=== PATIENT | female | born 1995 | race Caucasian/White ===

== ENCOUNTER 2018-12-12 16:54 | Emergency (ER) | payer MEDICAID, SELFPAY ==
[2018-12-12 16:55] VITALS: BP 128/76; PULSE 94; RESP 18; TEMP 36.6; O2SAT 99; BMI 32.0
--- NOTE | 2018-12-12 17:19 | HMH.EDUTC ---
[facility]ression: Otitis media Qualifiers: Otitis media type: suppurative Chronicity: acute Laterality: bilateral Recurrence: non-recurrent Spontaneous tympanic membrane rupture: without spontaneous rupture Qualified Code(s): H66.003 - Acute suppurative otitis media without spontaneous rupture of ear drum, bilateral Disposition: Home, Self-Care Condition on Discharge: Good Instructions: Middle Ear Infection Additional Instructions: Drink plenty of fluids. Take tylenol for pain or fever. Take the antibiotics as prescribed. Follow up wth your regular doctor. GO TO THE ER FOR ANY WORSENING SYMPTOMS Prescriptions: Amoxicillin [Amoxicillin 500mg Cap] 500 mg PO TID #30 cap Referrals: Prudencio Bailey MD [Primary Care Provider] - Forms: Work/School Release Time of Disposition: 17:42 Medical Decision Making - Medical Records Medical records reviewed: Yes: I reviewed the patient's medical records. - Ronn Inquiry Pt receiving controlled substance: No Ronn was queried for this patient: No Vital Signs: 12/12/18 16:55 12/12/18 17:49 Temperature 97.9 F 97.9 F Temperature Source Oral Oral Pulse Rate 94 H Pulse Rate [Left Radial] 94 H Respiratory Rate 18 18 Blood Pressure 128/76 Blood Pressure [Right Arm] 128/76 Blood Pressure Mean [Right Arm] 93 Blood Pressure Source Automatic Cuff Blood Pressure Source [Right Arm] Automatic Cuff Blood Pressure Position Sitting Blood Pressure Position [Right Arm] Sitting 02 Sat by Pulse Oximetry 99 Oxygen Delivery Method Room Air Room Air - Lab Data Lab Results 12/12/18 17:21: [facility]st Clinic Negative 12/12/18 17:42: POC Glucose 519 H* 12/12/18 17:43: Serum HCG, Qual Negative [facility] [place] - General Stated complaint: Possibe PREG, Possible Cold Time Seen by Provider: 12/12/18 17:19 - History of Present Illness Provider Complaint: She states she has had 1 week or worsening ear pain and sinus congestion. Her period is also late, so she thinks she may be . - Related Data Previous Rx's Medication Instructions Recorded Amoxicillin [Amoxicillin 500mg 500 mg PO TID #30 cap 12/12/18 Cap] Allergies Allergy/AdvReac Type Severity Reaction Status Date / Time No Known Allergies Allergy Verified 12/12/18 17:36 [facility] History - Hepatitis A Screen Attestation statement:: This patient has been screened for Hepatitis A risk factors. I have reviewed the patient's past medical history: Yes ROS Obtained: Yes All systems reviewed & no additional complaints - Genitourinary Female Genitourinary: Denies abnormal vaginal bleeding Physical Exam - General General appearance: alert, in no apparent distress - Head Head exam: atraumatic, normocephalic, normal inspection - Eye Eye exam: Present: normal appearance, PERRL, EOMI - ENT ENT exam: Present: normal exam, normal oropharynx, mucous membranes moist, TM's normal bilaterally, normal external ear exam - Neck Neck exam: Present: normal inspection, full ROM, trachea midline. Absent: meningismus, lymphadenopathy - Chest Chest inspection: Present: normal inspection, symmetric chest wall rise. Absent: tenderness - Respiratory Respiratory exam: Present: normal lung sounds bilaterally. Absent: respiratory distress - Cardiovascular Cardiovascular exam: Present: regular rate, normal rhythm. Absent: JVD - Abdominal Exam Abdominal exam: Present: soft, normal bowel sounds. Absent: distention, tenderness, guarding - Extremities Exam Extremities exam: Present: normal inspection, full ROM, normal capillary refill. Absent: calf tenderness - Back Exam Back exam: Present: normal inspection. Absent: tenderness - Neurological Exam Neurological exam: Present: alert, oriented X3 - Psychiatric Psychiatric exam: Present: normal affect, normal mood - Skin Skin exam: Present: warm, dry, intact, normal color - Lymphatic Lymphatic
[2018-12-12 17:23] LABS: UTC Pregnancy Test, Urine Negative (Negative)
--- NOTE | 2018-12-12 17:24 | ED_ITS ---
[facility] [place]: Otitis media Qualifiers: Otitis media type: suppurative Chronicity: acute Laterality: bilateral Recurrence: non-recurrent Spontaneous tympanic membrane rupture: without spontaneous rupture Qualified Code(s): H66.003 - Acute suppurative otitis media without spontaneous rupture of ear drum, bilateral Disposition: Home, Self-Care Condition on Discharge: Good Instructions: Middle Ear Infection Additional Instructions: Drink plenty of fluids. Take tylenol for pain or fever. Take the antibiotics as prescribed. Follow up wth your regular doctor. GO TO THE ER FOR ANY WORSENING SYMPTOMS Prescriptions: Amoxicillin [Amoxicillin 500mg Cap] 500 mg PO TID #30 cap Referrals: Prudencio Bailey MD [Primary Care Provider] - Forms: Work/School Release Time of Disposition: 17:42 Medical Decision Making - Medical Records Medical records reviewed: Yes: I reviewed the patient's medical records. - Ronn Inquiry Pt receiving controlled substance: No Ronn was queried for this patient: No Vital Signs: 12/12/18 16:55 12/12/18 17:49 Temperature 97.9 F 97.9 F Temperature Source Oral Oral Pulse Rate 94 H Pulse Rate [Left Radial] 94 H Respiratory Rate 18 18 Blood Pressure 128/76 Blood Pressure [Right Arm] 128/76 Blood Pressure Mean [Right Arm] 93 Blood Pressure Source Automatic Cuff Blood Pressure Source [Right Arm] Automatic Cuff Blood Pressure Position Sitting Blood Pressure Position [Right Arm] Sitting 02 Sat by Pulse Oximetry 99 Oxygen Delivery Method Room Air Room Air - Lab Data Lab Results 12/12/18 17:21: Tst Clinic Negative 12/12/18 17:42: POC Glucose 519 H* 12/12/18 17:43: Serum HCG, Qual Negative [facility] [place] - General Stated complaint: Possibe PREG, Possible Cold Time Seen by Provider: 12/12/18 17:19 - History of Present Illness Provider Complaint: She states she has had 1 week or worsening ear pain and sinus congestion. Her period is also late, so she thinks she may be . - Related Data Previous Rx's Medication Instructions Recorded Amoxicillin [Amoxicillin 500mg 500 mg PO TID #30 cap 12/12/18 Cap] Allergies Allergy/AdvReac Type Severity Reaction Status Date / Time No Known Allergies Allergy Verified 12/12/18 17:36 [facility] History - Hepatitis A Screen Attestation statement:: This patient has been screened for Hepatitis A risk factors. I have reviewed the patient's past medical history: Yes ROS Obtained: Yes All systems reviewed & no additional complaints - Genitourinary Female Genitourinary: Denies abnormal vaginal bleeding Physical Exam - General General appearance: alert, in no apparent distress - Head Head exam: atraumatic, normocephalic, normal inspection - Eye Eye exam: Present: normal appearance, PERRL, EOMI - ENT ENT exam: Present: normal exam, normal oropharynx, mucous membranes moist, TM's normal bilaterally, normal external ear exam - Neck Neck exam: Present: normal inspection, full ROM, trachea midline. Absent: meningismus, lymphadenopathy - Chest Chest inspection
[2018-12-12 17:49] VITALS: BP 128/76; PULSE 94; RESP 18; TEMP 36.6; O2SAT 99
[2018-12-12 17:54] LABS: POC Glucose,Bedside 519 (70-110)
[2018-12-12 18:06] LABS: HCG Qualitative, Serum Negative (Negative)
--- NOTE | 2018-12-12 18:13 | PC.NURSE ---
Patient notified of negative HCG.
== END 2018-12-12 17:49 | disposition home or self-care (01) ==
PROVIDERS: Emergency Provider Nurse Practitioner Family; PCP Internal Medicine
DX: H66.003 Acute suppurative otitis media without spontaneous rupture of ear drum, bilateral (principal); F17.210 Nicotine dependence, cigarettes, uncomplicated; N91.2 Amenorrhea, unspecified
CPT/HCPCS: 81025; 82962; 84703; 99202

== ENCOUNTER 2021-04-28 09:02 | Emergency (ER) | payer BC, SELFPAY ==
[2021-04-28 09:24] VITALS: BP 146/83; PULSE 91; RESP 18; TEMP 36.9; O2SAT 98; BMI 37.5
[2021-04-28 09:29] LABS: UTC Strep Screen (Rapid) Positive (Negative)
--- NOTE | 2021-04-28 09:42 | HMH.EDUTC ---
[facility] [place] Clinical Impression: Strep throat Disposition: Home, Self-Care Condition on Discharge: Good Instructions: DI for Strep Throat, Strep Throat Additional Instructions: *If you did not take Penicillin shot or was unable to, start taking antibiotic immediately and make sure that you take it for the FULL length of time although you should start to feel better in 24-48 hours *change toothbrush and toothpaste 24-48 hours after starting to take antibiotics so you do not reinfect yourself Monitor Temp. Tylenol and/or Ibuprofen as needed. ER if fever is no less than 101 despite alternating Tylenol and Ibuprofen * Encourage fluids, water, Gatorade, powerade, pedialyte if /toddler/or child *Cold fluids, popsicles and ice cream may feel good on his throat *Monitor Temp, Over the counter Motrin or Tylenol as directed/as needed Tylenol every 4 hours and Motrin every 6 hours (as long as your family doctor has told you that you can take it) for fever or pain. and straight to ER if unable to lower temp less than 101.0 after medication given *Warm salt water gargles may help to soothe the throat *Throat Lozenges *Warm fluids like tea with honey may help to soothe the throat *Sleep elevated *Humidifier/Vaporizer Follow up IMMEDIATELY for new or worsening symptoms or no Noticeable improvement over the next 48-72 hours. 911 for difficulty breathing or swallowing Prescriptions: cephALEXin [cephALEXin 500mg capsule*] 500 mg PO BID 10 Days #20 cap Transmission Status: Pending to [facility] #[id number] Referrals: Provider,Referral, [Primary Care Provider] - As needed Time of Disposition: 09:48 Medical Decision Making - Ronn Inquiry Pt receiving controlled substance: No Ronn was queried for this patient: No Vital Signs: 04/28/21 09:24 Temperature 98.4 F Temperature Source Oral Pulse Rate [Left] 91 H Respiratory Rate 18 Blood Pressure [Right Arm] 146/83 H Blood Pressure Mean [Right Arm] 104 02 Sat by Pulse Oximetry 98 - Lab Data Lab results reviewed: Yes: I reviewed the patient's lab results. Lab Results 04/28/21 09:22: Strep Scn Rapid Clinic Positive A Medical Decision Narrative: Patient states that she has taken Cephalexin in the past without complications or reactions [facility] [place] HPI - General Stated complaint: sore throat, cough, vomiting, weakness Time Seen by Provider: 04/28/21 09:42 Mode of Arrival: Ambulatory Source of Information: Patient Limitations: No Limitations Description of Symptoms (Recalled from Triage Doc. by RN): pt c/o a sore throat and light headedness. HEENT Symptoms (Recalled from RN notes): Yes (sore throat and light headed) Resp Symptoms (Recalled from RN notes): No Skin Symptoms (Recalled from RN notes): No MS Symptoms (Recalled from RN notes): No Functional Status (Recalled from RN notes): na - History of Present Illness Provider Complaint: Patient states that she has been having sore throat and headache States that she has been feeling feverish and chills States that several people at work has had strep throat and thinks she may have it too - Related Data Home Medications Medication Instructions Recorded Confirmed insulin aspar prt-insulin aspart 15 unit SQ DAILY 03/04/19 09/01/19 100 unit/mL (70-30) subcutaneous soln insulin glargine 100 unit/mL (3 32 unit SQ PM ml 03/04/19 09/01/19 mL) subcutaneous pen ranitidine HCl 150 mg tablet 150 mg PO DAILY 03/19/19 09/01/19 acetone (urine) test See Rx Instructions .ROUTE 07/04/19 09/01/19 .MEDSUPPLY #25 each glucagon (human recombinant) 1 mg IM 07/04/19 09/01/19 solution for injection insulin lispro 100 unit/mL unit SQ 07/04/19 09/01/19 subcutaneous pen lancets 30 gauge See Rx Instructions .ROUTE 07/04/19 09/01/19 .MEDSUPPLY #25 each pen needle, diabetic 31 gauge x See Rx Instructions .ROUTE 07/04/19 09/01/1916 .MEDSUPPLY #30 each blood sugar diagnostic See Rx Instructions .ROU
[2021-04-28 09:57] VITALS: BP 146/83; PULSE 91; RESP 16; TEMP 36.9
== END 2021-04-28 10:05 | disposition home or self-care (01) ==
PROVIDERS: Emergency Provider Nurse Practitioner
DX: J02.0 Streptococcal pharyngitis (principal)
CPT/HCPCS: 87880; 99202; G0463

== ENCOUNTER 2021-11-07 09:55 | Emergency (ER) | payer BC, SELFPAY ==
[2021-11-07 09:55] VITALS: BP 137/92; PULSE 102; RESP 16; TEMP 36.8; O2SAT 100; BMI 40.2
--- NOTE | 2021-11-07 09:57 | HMH.EDDIZZ ---
ED Disposition Clinical Impression: Hypoglycemia Disposition: Home, Self-Care Condition on Discharge: Good Instructions: Insulin, How to Check Your Blood Glucose, Hypoglycemia Additional Instructions: Please return to the emergency department immediately if you feel worse in any way. Follow-up with your primary care doctor in about 2 to 3 days if you do not feel better. - Critical Care Critical Care Time: No Attestation: On , the high probability of a clinically significant, sudden or life threatening deterioration of the following system(s) required my full and direct attention, intervention and personal management. The time I documented below is in addition to time spent performing reported procedures but includes the following listed in this critical care notation. Medical Decision Making - Medical Records Medical records reviewed: Yes: I reviewed the patient's medical records. - Ronn Inquiry Pt receiving controlled substance: No Vital Signs: 11/07/21 09:55 11/07/21 10:00 Temperature 98.3 F Temperature Source Oral Pulse Rate 95 H Pulse Rate [Right] 102 H Respiratory Rate 16 18 Blood Pressure 137/84 Blood Pressure [Right Arm] 137/92 H Blood Pressure Mean 104 Blood Pressure Mean [Right Arm] 107 Blood Pressure Source [Right Arm] Automatic Cuff Blood Pressure Position [Right Arm] Sitting 02 Sat by Pulse Oximetry 100 99 Oxygen Delivery Method Room Air - Lab Data Lab results reviewed: Yes: I reviewed the patient's lab results. Lab Results 11/07/21 10:00: WBC 8.8, RBC 4.68, Hgb 13.4, Hct 39.3, MCV 83.8, MCH 28.5, MCHC 34.0, RDW 14.7, Plt Count 355, MPV 8.9, Neut % (Auto) 60.4, Lymph % (Auto) 28.3, Glenn % (Auto) 4.8, Eos % (Auto) 4.7, Baso % (Auto) 1.9, Neut # (Auto) 5.3, Lymph # (Auto) 2.5, Glenn # (Auto) 0.4, Eos # (Auto) 0.4, Baso # (Auto) 0.2 11/07/21 10:00: Sodium 136, Potassium 3.9, Chloride 106, Carbon Dioxide 24, Anion Gap 9.9, BUN 11, Creatinine 0.50 L, Estimated Creat Clear 273, Estimated GFR 152, Est GFR ( Amer) 183, Glucose 88, Calcium 8.9, Total Bilirubin 0.3, AST 30, ALT 27, Alkaline Phosphatase 114, Total Protein 7.0, Albumin 3.8, Globulin 3.2, Albumin/Globulin Ratio 1.2, Lipase 59 11/07/21 10:00: Serum HCG, Qual Negative 11/07/21 10:13: Urine Color Yellow, Urine Appearance Clear, Urine pH 6.0, Ur Specific [place] 1.015, Urine Protein Negative, Urine Glucose (UA) Trace, Urine Ketones Negative, Urine Blood Negative, Urine Nitrate Negative, Urine Bilirubin Negative, Urine Urobilinogen 0.2, Ur Leukocyte Esterase Trace, Urine RBC None, Urine WBC None, Ur Squamous Epith Cells 3-5, Urine Bacteria Trace Result diagrams: 11/07/21 10:00 11/07/21 10:00 - Reevaluation(s) Time: 10:54 Reevaluation #1: Patient feels better. She complains of a mild migraine. Otherwise her dizziness and nausea have resolved. Medical Decision Narrative: The patient's work-up in the emergency department did not reveal any life-threatening or dangerous causes for the patient's symptoms. She is known diabetic and was found to be relatively hypoglycemic in comparison to her usual blood glucose. She has eaten in the emergency department. Her labs are unremarkable. She feels better. She can be safely discharged home. Dizzy HPI - General Stated Complaint: hypoglycemia Time Seen by Provider: 11/07/21 09:57 Mode of Arrival: EMS Source of Information: Patient - History of Present Illness HPI Narrative: The patient presents to the emergency department complaining of lightheadedness, nausea, and malaise. She also has a mild headache. She has a history of insulin-dependent diabetes as well as migraine headaches. She states that she ate breakfast today and her regular insulin dosing. Her glucose was 66. She states that her normal glucose is around 200. She never lost consciousness. She denies any vomiting diarrhea or chest pain or shortness of breath. MD complaint: dizziness, lightheadedness, near
[2021-11-07 10:00] VITALS: BP 137/84; PULSE 95; RESP 18; O2SAT 99
--- NOTE | 2021-11-07 10:12 | PC.NURSE ---
Called dietary for regular tray for patient
[2021-11-07 10:13] LABS: Basophils # 0.2 K/mm3 (0-0.2); Basophils % 1.9 % (0.1-2.0); Eosinophils # 0.4 K/mm3 (0.0-0.4); Eosinophils % 4.7 % (0.1-12.0); Hematocrit 39.3 % (37.0-47.0); Hemoglobin 13.4 g/dL (12.2-16.2); Lymphocytes # 2.5 K/mm3 (0.7-4.5); Lymphocytes % 28.3 % (10-50); Mean Corpuscular Hemoglobin 28.5 pg (27.0-31.2); Mean Corpuscular Volume 83.8 fl (81-99); Mean Platelet Volume 8.9 fl (7.4-10.4); Monocytes # 0.4 K/mm3 (0.1-1.0); Monocytes % 4.8 % (1.7-9.3); Neutrophils # 5.3 K/mm3 (1.8-7.8); Neutrophils % 60.4 % (37.0-80.0); Platelet Count 355 K/mm3 (142-424); Red Blood Count 4.68 M/mm3 (4.20-5.40); Red Cell Distribution Width 14.7 % (11.5-17.5); White Blood Count 8.8 K/mm3 (4.8-10.8)
[2021-11-07 10:18] LABS: Alanine Aminotransferase 27 U/L (12-78); Albumin Level 3.8 g/dl (3.5-5.0); Albumin/Globulin Ratio 1.2 (1.1-1.8); Alkaline Phosphatase 114 U/L (38-126); Anion Gap 9.9 mEq/L (5-15); Aspartate Amino Transferase 30 U/L (14-36); Bilirubin,Total 0.3 mg/dl (0.2-1.3); Blood Urea Nitrogen 11 mg/dl (7-17); Calcium 8.9 mg/dl (8.4-10.2); Carbon Dioxide 24 mmol/L (22.0-30.0); Chloride 106 mmol/L (98-107); Creatinine Clearance Estimated 273 mL/min (50-200); Estimated Glomerular Filt Rate 152 ml/min (>60); GFR (African American) 183 ML/MIN (>60); Globulin 3.2 g/dL (1.3-3.2); Glucose 88 mg/dl (74-100); Lipase 59 U/L (23-300); Potassium 3.9 mmoL/L (3.5-5.1); Sodium 136 mmol/L (136-145)
[2021-11-07 10:18] LABS: Microscopic, Urine URINE MICROSCOPIC (MICROSCOPIC)
[2021-11-07 10:21] LABS: Appearance,Urine CLEAR (Clear); Bilirubin,Urine Negative (Negative); Blood, Urine Negative (Negative); Color,Urine YELLOW (Yellow); Glucose,Urine (UA) TRACE (Negative); Ketones,Urine Negative (Negative); Leukocyte Esterase,Urine TRACE (Negative); Nitrate,Urine Negative (Negative); Protein,Urine Negative (Negative); Specific Gravity, Urine 1.015 (1.005-1.030); Urobilinogen,Urine 0.2 EU/dl (0.2)
[2021-11-07 10:35] LABS: Bacteria,Urine Trace /lpf
[2021-11-07 10:37] LABS: HCG Qualitative, Serum Negative (Negative)
--- NOTE | 2021-11-07 10:39 | PC.NURSE ---
PT sitting in bed eating. No new needs at this time
[2021-11-07 11:01] VITALS: BP 123/71; PULSE 78; RESP 18; TEMP 36.8; O2SAT 97
== END 2021-11-07 11:02 | disposition home or self-care (01) ==
PROVIDERS: Emergency Provider Emergency Medicine
DX: E10.649 Type 1 diabetes mellitus with hypoglycemia without coma (principal); F41.8 Other specified anxiety disorders; Z72.0 Tobacco use
CPT/HCPCS: 80053; 81001; 83690; 84703; 85025; 99283

== ENCOUNTER → 2021-11-30 11:14 | Outpatient (CLI) | payer BC, SELFPAY ==
[2021-11-30 13:18] LABS: Hemoglobin A1C 8.1 % (4.0-6.0)
[2021-11-30 13:20] LABS: Thyroid Stimulating Hormone 3.82 uIU/mL (0.465-4.68)
[2021-12-01 08:29] LABS: Progesterone 0.1 ng/mL (.)
== END ==
PROVIDERS: PCP Obstetrics & Gynecology; Visit Provider Obstetrics & Gynecology
DX: N97.9 Female infertility, unspecified (principal)
CPT/HCPCS: 36415; 83036; 84144; 84443

== ENCOUNTER 2022-01-05 15:59 | Emergency (ER) | payer BC, SELFPAY ==
[2022-01-05 16:14] VITALS: BMI 34.7
--- NOTE | 2022-01-05 16:15 | PC.NURSE ---
notified pt no beds available in ER at this time. Pt in wheelchair in triage room. Will room pt as soon as a room in available. Pt agreeable to this plan
--- NOTE | 2022-01-05 16:16 | XR_ITS ---
PROCEDURE INFORMATION: Exam: XR Left Ankle Exam date and time: 01/05/2022 4:28 PM Age: 26 years old Clinical indication: Pain; Other: Lateral malleolus; Additional info: PT fell [employer], pain w swelling @ lateral malleolus TECHNIQUE: Imaging protocol: Radiologic exam of the Left ankle. Views: 3 or more views. COMPARISON: CR XR ANKLE LT MIN 3V 04/04/2019 9:05 PM FINDINGS: Bones/joints: There is no evidence of acute fracture. There is no evidence of joint malalignment or dislocation. Soft tissues: Mild soft tissue swelling. IMPRESSION: 1. Mild soft tissue swelling. 2. No evidence of acute fracture. 3. No evidence of acute dislocation.
--- NOTE | 2022-01-05 16:18 | PC.NURSE ---
notified rad of xray order, spoke with chin
[2022-01-05 16:25] VITALS: BP 125/85; PULSE 107; RESP 16; O2SAT 99; BMI 34.7
[2022-01-05 17:00] VITALS: BP 121/82; PULSE 100; RESP 18; O2SAT 100
--- NOTE | 2022-01-05 17:09 | PC.NURSE ---
pt brought to room 5 via wheelchair
--- NOTE | 2022-01-05 17:16 | PC.NURSE ---
sandwich ordered for pt, pt reports her glucose is 55, pt wearing insulin pump
--- NOTE | 2022-01-05 17:18 | PC.NURSE ---
L foot propped up on pillow for comfort, will continue to monitor
--- NOTE | 2022-01-05 17:28 | PC.NURSE ---
ice pack to L ankle at this time.
[2022-01-05 17:30] VITALS: BP 131/91; PULSE 101; RESP 18; O2SAT 100
--- NOTE | 2022-01-05 17:59 | HMH.EDLOEX ---
ED Disposition Clinical Impression: Ankle sprain Qualifiers: Encounter type: initial encounter Involved ligament of ankle: unspecified ligament Laterality: left Qualified Code(s): S93.402A - Sprain of unspecified ligament of left ankle, initial encounter Disposition: Home, Self-Care Condition on Discharge: Good Instructions: DI for Ankle Sprain Additional Instructions: ice and see pcp or ortho or podiatry for follow up - workman comp for m completed Referrals: Lubna Farmer APRN [Primary Care Provider] - Mari Souza DPM [Staff Physician] - Sunil Garcia MD [Staff Physician] - - Critical Care Critical Care Time: No Attestation: On 01/05/22, the high probability of a clinically significant, sudden or life threatening deterioration of the following system(s) required my full and direct attention, intervention and personal management. The time I documented below is in addition to time spent performing reported procedures but includes the following listed in this critical care notation. Medical Decision Making - Medical Records Medical records reviewed: Yes: I reviewed the patient's medical records. - Ronn Inquiry Pt receiving controlled substance: No Vital Signs: 01/05/22 16:25 Pulse Rate [Right Radial] 107 H Respiratory Rate 16 Blood Pressure [Right Arm] 125/85 Blood Pressure Mean [Right Arm] 98 Blood Pressure Source [Right Arm] Automatic Cuff Blood Pressure Position [Right Arm] Sitting 02 Sat by Pulse Oximetry 99 Oxygen Delivery Method Room Air - Lab Data Lab results reviewed: Yes: I reviewed the patient's lab results. Orders (Tests/Meds): ED MEDICATIONS Discontinued Medications Generic Name Dose Route Start Last Admin Trade Name Freq PRN Reason Stop Dose Admin Acetaminophen 1,000 mg 01/05/22 17:23 01/05/22 17:24 Acetaminophen 500mg Tab PO 01/05/22 17:24 1,000 mg ONCE ONE Administration - Radiology Data #1 Image(s): Ankle Image Reviewed: Yes I have reviewed radiologist's interpretation Preliminary Findings: No Fracture Seen Medical Decision Narrative: pt with acute injury to lt ankle with dec rom and will need f/u with ortho or podiatry Lower Extremity Injury HPI - General Chief Complaint: Extremity Injury, Lower Stated Complaint: AO 01/05@1530 reinjured L ankle Time Seen by Provider: 01/05/22 17:59 Mode of Arrival: Wheelchair Source of Information: Patient, Medical Record Limitations: No Limitations Description of Symptoms (Recalled from ER Triage Doc. by RN): pt c/o L ankle pain. Pt reports she tripped at work causing her to fall. Swelling noted to L ankle. Pt reports her foot is numb feeling. Pulses positive and equal, cap refill wnl - History of Present Illness HPI Narrative: stepped on toy at work and injured lt ankle MD complaint: ankle injury Onset (ago): hour(s) Injury: Left: ankle Type of Injury: eversion Place: work Severity: moderate Context: walking Associated symptoms: snap/pop sensation, swelling, able to partially bear weight Other symptoms: none - Related Data Home Medications Medication Instructions Recorded Confirmed glucagon (human recombinant) 1 mg IM 07/04/19 12/20/21 solution for injection lancets 30 gauge See Rx Instructions .ROUTE 07/04/19 12/20/21 .MEDSUPPLY #25 each pen needle, diabetic 31 gauge x See Rx Instructions .ROUTE 07/04/19 12/20/21 3/16 .MEDSUPPLY #30 each blood-glucose meter See Rx Instructions .ROUTE 09/01/19 12/20/21 .MEDSUPPLY #1 each cariprazine 1.5 mg capsule 1.5 mg PO cap 11/25/21 12/20/21 hydroxyzine HCl 25 mg tablet 25 mg PO BID PRN tab 11/25/21 12/20/21 insulin lispro 100 unit/mL 1 sliding scale dose SQ ml 11/25/21 12/20/21 subcutaneous solution rizatriptan 5 mg tablet 5 mg PO tab 11/25/21 12/20/21 Previous Rx's Medication Instructions Recorded Ondansetron [Zofran 4mg ODT] 4 mg PO Q8HP PRN #20 tab.rapdis 08/09/19 vits no.[id number]-ferrous fum 1
[2022-01-05 18:00] VITALS: BP 130/93; PULSE 91; RESP 18; O2SAT 99
--- NOTE | 2022-01-05 18:00 | PC.NURSE ---
SOFT ROLL AND RODRÍGUEZ WRAP APPLIED TO LEFT ANKLE , PT HAS CRUTCHES AT HOME
[2022-01-05 18:46] VITALS: BP 126/66; PULSE 101; RESP 17; TEMP 36.8; O2SAT 100
== END 2022-01-05 18:46 | disposition home or self-care (01) ==
PROVIDERS: Emergency Provider Emergency Medicine; PCP Nurse Practitioner Family
DX: S93.402A Sprain of unspecified ligament of left ankle, initial encounter (principal); W01.0XXA Fall on same level from slipping, tripping and stumbling without subsequent striking against object, initial encounter; F17.210 Nicotine dependence, cigarettes, uncomplicated; Z79.4 Long term (current) use of insulin; E10.9 Type 1 diabetes mellitus without complications
CPT/HCPCS: 29515; 73610; 99283

== ENCOUNTER 2022-07-27 09:24 | Emergency (ER) | payer BC, SELFPAY ==
[2022-07-27 09:40] VITALS: BP 130/74; PULSE 103; RESP 19; TEMP 36.7; O2SAT 98; BMI 39.9
--- NOTE | 2022-07-27 09:52 | EXP.UTC ---
Discharge Plan Disposition Patient Disposition: Home, Self-Care Condition: Good Prescriptions Prescriptions: New amoxicillin-pot clavulanate 875-125 mg Tablet 1 tab PO Q12H Qty: 20 0RF fluticasone propionate [Flonase Allergy Relief] 50 mcg/actuation spray,suspension 1 spray intranasal DAILY Qty: 16 0RF Rx Instructions: administer into each nostril No Action (DME) pen needle, diabetic 31 gauge x 3/16 needle See Rx Instructions .ROUTE .MEDSUPPLY Qty: 30 Rx Instructions: As directed glucagon (human recombinant) 1 mg recon soln IM (DME) lancets 30 gauge misc See Rx Instructions .ROUTE .MEDSUPPLY Qty: 25 Rx Instructions: As directed (DME) blood-glucose meter Misc See Rx Instructions .ROUTE .MEDSUPPLY Qty: 1 Rx Instructions: As directed insulin lispro 100 unit/mL solution 1 sliding scale dose SQ hydroxyzine HCl 25 mg tablet 25 mg PO BID PRN rizatriptan 5 mg tablet 5 mg PO Label Comments: TAKE 1 TABLET AT ONSET OF HEADACHE. MAY REPEAT EVERY 2 HOURS NEEDED. MAXIMUM 3 TABLETS/24 HOURS. Vraylar 1.5 mg capsule 1.5 mg PO Classic 28 mg iron- 800 mcg tablet 1 tab PO DAILY Qty: 90 0RF clomiphene citrate 50 mg tablet 50 mg PO DAILY 5 Days Qty: 5 0RF ondansetron 4 MG tablet,disintegrating 4 mg PO Q8HP PRN (Reason: Nausea) Qty: 20 0RF Referrals Follow up/Referrals: Lubna Farmer APRN [Primary Care Provider] - See instructions Activity Restrictions/Add. Instructions Additional Instructions/Restrictions: *Monitor Temp, Over the counter Motrin or Tylenol as directed/as needed Tylenol every 4 hours and Motrin every 6 hours (as long as your family doctor has told you that you can take it) for fever or pain. and straight to ER if unable to lower temp less than 101.0 after medication given *Warm salt water gargles may help to soothe the throat *Throat Lozenges? *Warm fluids like tea with honey may help to soothe the throat? *Sleep elevated *Humidifier/Vaporizer Your throat swab was sent for culture. Those results are typically sent to your primary care. Be sure to follow up in 2-3 days with your family doctor/primary care physician if no improvement so they can review those result and treat if necessary. If you don?t have a primary care doctor, I recommend you get one but in the mean time, you will have to return to a walk in clinic Follow up IMMEDIATELY for new or worsening symptoms or no Noticeable improvement over the next 48-72 hours. 911 for difficulty breathing or swallowing Clinical Impressions Clinical Impression: Sinusitis Stand Alone Forms Stand Alone Forms: Work/School Release Instructions Patient Instructions: DI for Sinusitis, Sinusitis Discharge ED [place] [facility] [place] General Stated complaint: sore throat, ear pain, cough, FLOOD Time Seen by Provider: 07/27/22 09:53 History of Present Illness Provider Complaint: Patient states that she works at a daycare States that she thinks she may have a sinus infection but she has been having sore throat, sinus congestion and pressure, cough and headache States that today she was still not feeling well and her throat was hurting worse so she came in Related Data Home Medications Medication Instructions Recorded Confirmed glucagon (human recombinant) 1 mg IM 07/04/19 12/20/21 solution for injection lancets 30 gauge #25 ea 07/04/19 12/20/21 pen needle, diabetic 31 gauge x #30 ea 07/04/19 12/20/2109/14 blood-glucose meter #1 ea 09/01/19 12/20/21 cariprazine 1.5 mg capsule 1.5 mg PO 11/25/21 12/20/21 (Vraylar) hydroxyzine HCl 25 mg tablet 25 mg PO BID PRN 11/25/21 12/20/21 insulin lispro 100 unit/mL 1 sliding scale dose SQ 11/25/21 12/20/21 subcutaneous solution rizatriptan 5 mg tablet 5 mg PO 11/25/21 12/20/21 Previous Rx's Medication Instructions Recorded ondansetron 4 mg
[2022-07-27 10:02] LABS: UTC Strep Screen (Rapid) Negative (Negative)
[2022-07-27 10:25] VITALS: BP 130/74; PULSE 103; RESP 19; TEMP 36.7; O2SAT 98
== END 2022-07-27 10:27 | disposition home or self-care (01) ==
PROVIDERS: Emergency Provider Nurse Practitioner; PCP Nurse Practitioner Family
DX: J32.9 Chronic sinusitis, unspecified (principal)
CPT/HCPCS: 87880; 99212; 99213; G0463

== ENCOUNTER 2022-10-10 13:17 | Emergency (ER) | payer BC, SELFPAY ==
[2022-10-10] VITALS (8 sets, daily range): BP systolic 135–184; BP diastolic 75–100; PULSE 85–102; RESP 16; TEMP 36.3–36.9; O2SAT 98–100; BMI 45.7
[2022-10-10 13:34] LABS: POC Glucose,Bedside 504 (70-110)
[2022-10-10 13:58] LABS: Microscopic, Urine URINE MICROSCOPIC (MICROSCOPIC)
[2022-10-10 14:02] LABS: VBG Base Excess -3.6 mmol/L (-2.4-2.3); VBG HCO3 21.8 mmol/L (23-30); VBG Oxygen Saturation 94.3 % (50-70); VBG PCO2 39.5 mmol/L (35-51); VBG PH 7.36 mmol/L (7.31-7.41); VBG PO2 72.2 mmol/L (28-40)
[2022-10-10 14:05] LABS: Appearance,Urine CLEAR (Clear); Bilirubin,Urine Negative (Negative); Blood, Urine Negative (Negative); Color,Urine YELLOW (Yellow); Glucose,Urine (UA) 3+ (Negative); Ketones,Urine TRACE (Negative); Leukocyte Esterase,Urine Negative (Negative); Nitrate,Urine Negative (Negative); Protein,Urine Negative (Negative); Urobilinogen,Urine 0.2 EU/dl (0.2)
--- NOTE | 2022-10-10 14:05 | PC.NURSE ---
RESP CARE NOTE: Shellie Nelson RN notified that VBG was an ABG result.
[2022-10-10 14:12] LABS: Basophils # 0.1 K/mm3 (0-0.2); Basophils % 0.8 % (0.1-2.0); Eosinophils # 0.4 K/mm3 (0.0-0.4); Eosinophils % 4.7 % (0.1-12.0); Hematocrit 40.8 % (37.0-47.0); Lymphocytes # 2.3 K/mm3 (0.7-4.5); Lymphocytes % 29.4 % (10-50); Mean Corpuscular HGB Conc 31.9 g/dL (31.8-35.4); Mean Corpuscular Hemoglobin 26.8 pg (27.0-31.2); Mean Corpuscular Volume 84.1 fl (81-99); Mean Platelet Volume 10.1 fl (7.4-10.4); Monocytes # 0.4 K/mm3 (0.1-1.0); Monocytes % 5.7 % (1.7-9.3); Neutrophils # 4.6 K/mm3 (1.8-7.8); Neutrophils % 59.4 % (37.0-80.0); Platelet Count 311 K/mm3 (142-424); Red Blood Count 4.85 M/mm3 (4.20-5.40); Red Cell Distribution Width 13.8 % (11.5-17.5); White Blood Count 7.7 K/mm3 (4.8-10.8)
--- NOTE | 2022-10-10 14:13 | HMH.EDGENADL ---
Discharge Plan Disposition Patient Disposition: Home, Self-Care Chief Complaint: Weakness Prescriptions Prescriptions: No Action (DME) pen needle, diabetic 31 gauge x 3/16 needle See Rx Instructions .ROUTE .MEDSUPPLY Qty: 30 Rx Instructions: As directed glucagon (human recombinant) 1 mg recon soln IM (DME) lancets 30 gauge misc See Rx Instructions .ROUTE .MEDSUPPLY Qty: 25 Rx Instructions: As directed (DME) blood-glucose meter Misc See Rx Instructions .ROUTE .MEDSUPPLY Qty: 1 Rx Instructions: As directed insulin lispro 100 unit/mL solution 1 sliding scale dose SQ hydroxyzine HCl 25 mg tablet 25 mg PO BID PRN rizatriptan 5 mg tablet 5 mg PO Label Comments: TAKE 1 TABLET AT ONSET OF HEADACHE. MAY REPEAT EVERY 2 HOURS NEEDED. MAXIMUM 3 TABLETS/24 HOURS. Vraylar 1.5 mg capsule 1.5 mg PO Classic 28 mg iron- 800 mcg tablet 1 tab PO DAILY Qty: 90 0RF clomiphene citrate 50 mg tablet 50 mg PO DAILY 5 Days Qty: 5 0RF ondansetron 4 MG tablet,disintegrating 4 mg PO Q8HP PRN (Reason: Nausea) Qty: 20 0RF amoxicillin-pot clavulanate 875-125 mg Tablet 1 tab PO Q12H Qty: 20 0RF fluticasone propionate [Flonase Allergy Relief] 50 mcg/actuation spray,suspension 1 spray intranasal DAILY Qty: 16 0RF Rx Instructions: administer into each nostril Referrals Follow up/Referrals: Lubna Farmer APRN [Primary Care Provider] - See instructions Activity Restrictions/Add. Instructions Additional Instructions/Restrictions: Return for worsening elevation in blood glucose levels or any other concerns within the next 8 hours follow-up with your primary care physician within the next few days Clinical Impressions Clinical Impression: Acute hyperglycemia Discharge ED Provider: Ranjit Culver [facility] HPI General Chief complaint: Weakness Stated complaint: high sugar, weakness Time Seen by Provider: 10/10/22 13:20 Mode of Arrival: Ambulatory Source of Information: Patient Limitations: No Limitations Description of Symptoms (Recalled from ER Triage Doc. by RN): pt comes in with c/o glucose monitor at home reading high, weakness. pt reports that she woke up this am and her dexcom was reading glucose level as high . pt reports that she normally has an insulin pump, but currently it is off. pt will not have more supplies until sunday. at home glucose reader was 532 approx 1 hr ago. pt reports that she has taken approx 60 units in total since she woke up this am. History of Present Illness HPI narrative: 27-year-old female with history of type 1 diabetes presents with high blood sugar. She has had increased thirst hunger and urination. Her blood sugar was 500 at home. She normally has an insulin pump however it is currently off. She will have more supplies until Sunday her home blood sugar reading was 532. She is generally weak no fever or chills. No abdominal pain nausea vomiting or diarrhea. Related Data Home Medications Medication Instructions Recorded Confirmed glucagon (human recombinant) 1 mg IM 07/04/19 12/20/21 solution for injection lancets 30 gauge #25 ea 07/04/19 12/20/21 pen needle, diabetic 31 gauge x #30 ea 07/04/19 12/20/2109/14 blood-glucose meter #1 ea 09/01/19 12/20/21 cariprazine 1.5 mg capsule 1.5 mg PO 11/25/21 12/20/21 (Vraylar) hydroxyzine HCl 25 mg tablet 25 mg PO BID PRN 11/25/21 12/20/21 insulin lispro 100 unit/mL 1 sliding scale dose SQ 11/25/21 12/20/21 subcutaneous solution rizatriptan 5 mg tablet 5 mg PO 11/25/21 12/20/21 Previous Rx's Medication Instructions Recorded ondansetron 4 mg disintegrating 4 mg PO Q8HP PRN Nausea ##20 08/09/19 tablet vits no.126-ferrous fum 1 tab PO DAILY #90 tabs 11/25/21 28 mg iron-folic acid 800 mcg tablet (Classic ) clomiphene citrate 50 mg tablet 50 mg PO DAILY 5 days #5 tabs 12/20/21 amoxicillin 875
[2022-10-10 14:14] LABS: Chloride 99 mmol/L (98-107); Potassium 4.7 mmoL/L (3.5-5.1); Sodium 130 mmol/L (136-145)
[2022-10-10 14:17] LABS: Anion Gap 12.7 mEq/L (5-15); Blood Urea Nitrogen 17 mg/dl (7-17); Calcium 8.6 mg/dl (8.4-10.2); Carbon Dioxide 23 mmol/L (22.0-30.0); Creatinine Clearance Estimated 113 mL/min (50-200); Estimated Glomerular Filt Rate 122 ml/min (>60); GFR (African American) 147 ML/MIN (>60)
[2022-10-10 14:23] LABS: VBG Base Excess -5.1 mmol/L (-2.4-2.3); VBG HCO3 20.9 mmol/L (23-30); VBG Oxygen Saturation 87.5 % (50-70); VBG PCO2 40.5 mmol/L (35-51); VBG PH 7.33 mmol/L (7.31-7.41); VBG PO2 54.2 mmol/L (28-40); VBG Total CO2 22.1 mmol/L (23-27)
[2022-10-10 14:31] LABS: Glucose 541 mg/dl (74-100)
--- NOTE | 2022-10-10 14:33 | PC.NURSE ---
Jethro from lab called critical on patient blood glucose 540
[2022-10-10 14:42] LABS: HCG Qualitative, Serum Negative (Negative)
[2022-10-10 14:59] LABS: Squamous Epithelial Cell,Urine Occasional #/hpf (0-5)
[2022-10-10 16:34] LABS: POC Glucose,Bedside 289 (70-110)
== END 2022-10-10 16:41 | disposition home or self-care (01) ==
PROVIDERS: Emergency Provider Emergency Medicine; PCP Nurse Practitioner Family
DX: E10.65 Type 1 diabetes mellitus with hyperglycemia (principal); F17.210 Nicotine dependence, cigarettes, uncomplicated
CPT/HCPCS: 80048; 81001; 82803; 82962; 84703; 85025; 96360; 96374; 99284; 99285

== ENCOUNTER 2022-12-08 13:55 | Emergency (ER) | payer BC, SELFPAY ==
[2022-12-08 14:00] VITALS: BP 138/90; PULSE 130; RESP 22; TEMP 36.8; O2SAT 98; BMI 46.0
[2022-12-08 14:11] VITALS: BP 138/90; PULSE 130; RESP 22; TEMP 36.8; O2SAT 98
[2022-12-08 14:11] LABS: UTC Strep Screen (Rapid) Positive (Negative)
--- NOTE | 2022-12-08 14:12 | EXP.UTC ---
Discharge Plan Disposition Patient Disposition: Home, Self-Care Condition: Good Prescriptions Prescriptions: New cefdinir 300 mg capsule 300 mg PO BID Qty: 20 0RF No Action (DME) pen needle, diabetic 31 gauge x 3/16 needle See Rx Instructions .ROUTE .MEDSUPPLY Qty: 30 Rx Instructions: As directed glucagon (human recombinant) 1 mg recon soln IM (DME) lancets 30 gauge misc See Rx Instructions .ROUTE .MEDSUPPLY Qty: 25 Rx Instructions: As directed (DME) blood-glucose meter Misc See Rx Instructions .ROUTE .MEDSUPPLY Qty: 1 Rx Instructions: As directed insulin lispro 100 unit/mL solution 1 sliding scale dose SQ hydroxyzine HCl 25 mg tablet 25 mg PO BID PRN rizatriptan 5 mg tablet 5 mg PO Label Comments: TAKE 1 TABLET AT ONSET OF HEADACHE. MAY REPEAT EVERY 2 HOURS NEEDED. MAXIMUM 3 TABLETS/24 HOURS. Vraylar 1.5 mg capsule 1.5 mg PO Classic 28 mg iron- 800 mcg tablet 1 tab PO DAILY Qty: 90 0RF clomiphene citrate 50 mg tablet 50 mg PO DAILY 5 Days Qty: 5 0RF ondansetron 4 MG tablet,disintegrating 4 mg PO Q8HP PRN (Reason: Nausea) Qty: 20 0RF amoxicillin-pot clavulanate 875-125 mg Tablet 1 tab PO Q12H Qty: 20 0RF fluticasone propionate [Flonase Allergy Relief] 50 mcg/actuation spray,suspension 1 spray intranasal DAILY Qty: 16 0RF Rx Instructions: administer into each nostril Referrals Follow up/Referrals: Lubna Farmer APRN [Primary Care Provider] - See instructions Activity Restrictions/Add. Instructions Additional Instructions/Restrictions: *Monitor Temp, Over the counter Motrin or Tylenol as directed/as needed Tylenol every 4 hours and Motrin every 6 hours (as long as your family doctor has told you that you can take it) for fever or pain. and straight to ER if unable to lower temp less than 101.0 after medication given *Warm salt water gargles may help to soothe the throat *Throat Lozenges? *Warm fluids like tea with honey may help to soothe the throat? *Sleep elevated *Humidifier/Vaporizer *If you did not take Penicillin shot or was unable to, start taking antibiotic immediately and make sure that you take it for the FULL length of time although you should start to feel better in 24-48 hours *change toothbrush and toothpaste 24-48 hours after starting to take antibiotics so you do not reinfect yourself Monitor Temp. Tylenol and/or Ibuprofen as needed. ER if fever is no less than 101 despite alternating Tylenol and Ibuprofen * Encourage fluids, water, Gatorade, powerade, pedialyte if /toddler/or child *Cold fluids, popsicles and ice cream may feel good on his throat Follow up IMMEDIATELY for new or worsening symptoms or no Noticeable improvement over the next 48-72 hours. 911 for difficulty breathing or swallowing Clinical Impressions Clinical Impression: Strep throat Instructions Patient Instructions: DI for Strep Throat, Strep Throat Discharge ED Provider: Tonya Paz [facility] [place] HPI General Stated complaint: sore throat, cough, bilateral ear pain Mode of Arrival: Ambulatory Source of Information: Patient Limitations: No Limitations Time Seen by Provider: 12/08/22 14:12 Description of Symptoms (Recalled from Triage Doc. by RN): PATIENT C/O SORE THROAT, COUGH AND BILATERAL EAR PAIN SINCE YESTERDAY HEENT Symptoms (Recalled from RN notes): Yes Resp Symptoms (Recalled from RN notes): Yes Skin Symptoms (Recalled from RN notes): No MS Symptoms (Recalled from RN notes): No Functional Status (Recalled from RN notes): WNL History of Present Illness Provider Complaint: Patient states that she has been having sore throat and bilateral ear pain States that it started 2 days ago and has continued to get worse States that today she was hurting in her throat worse so she came in to get it checked thinking she may have strep throat Related Data Home Me
== END 2022-12-08 14:29 | disposition home or self-care (01) ==
PROVIDERS: Emergency Provider Nurse Practitioner; PCP Nurse Practitioner Family
DX: J02.0 Streptococcal pharyngitis (principal); H66.93 Otitis media, unspecified, bilateral; F17.210 Nicotine dependence, cigarettes, uncomplicated; E11.9 Type 2 diabetes mellitus without complications; E66.01 Morbid (severe) obesity due to excess calories; F41.9 Anxiety disorder, unspecified; Z79.4 Long term (current) use of insulin; Z68.42 Body mass index [BMI] 45.0-49.9, adult
CPT/HCPCS: 87880; 99212; 99214; G0463